=== PATIENT | female | born 1980 | race Caucasian/White ===

== ENCOUNTER 2023-10-24 08:28 | Outpatient (AMB) | payer BC, SELFPAY ==
--- NOTE | 2023-10-24 08:37 | MHC.OFFVIS ---
Intake Vital Signs 10/24/23 08:38 Weight 148 lb 4 oz BP 112/82 Blood Pressure Location Rt brachial Position Sitting Pulse 88 Pulse Source Pulse Oximeter Pulse Oximetry (%) 100 Oxygen Delivery Method Room Air Intake Visit Reasons: [id number] Intake Note: Patient presents for migraines. I've had migraines for as long as I can remember.Im currently on quilipta, I spoke to the doctor 2 years ago about botox but nothing was done. Allergies No Known Allergies Allergy (Verified 10/24/23 08:48) Medication List - Last Reconciled 10/24/23 by CHANEL Lutz atogepant (Qulipta) 60 mg PO DAILY clonidine HCl 0.1 mg PO BEDTIME PRN dextroamphetamine-amphetamine 20 mg 1 tab PO BID fremanezumab-vfrm (Ajovy) mg subcut galcanezumab-gnlm (Emgality Pen) mg subcut levothyroxine 50 mcg PO DAILY multivitamin 1 tab PO DAILY naltrexone 50 mg PO DAILY ondansetron HCl 0 mg PO rimegepant (Nurtec ODT) 0 mg PO rizatriptan 0 mg PO DAILY spironolactone 150 mg PO DAILY valacyclovir 1,000 mg PO DAILY vilazodone 40 mg PO DAILY HPI HPI Comments History of Present Illness Details 43-year-old female presents for new pt evaluation of headache disorder, specifically migraine. Past medical history includes exercise-induced asthma, interstitial cystitis, GERD, cervical neck tightness, vertigo, ADHD as a child, ADD as an adult, hypothyroidism, constipation, nausea, anxiety, partial hysterectomy in 2021. Patient denies history of syncope, seizures, clotting or blood dyscrasia disorders, diabetes, or heart disease. Patient reports she started having migraine at age 14 or 15 years old, without known triggering cause. She would have 1-2 migraine attacks per month which would last 1-2 days each attack.. Then approximately 4 years ago, after she had a follow-up MMR vaccine, she started having increased headache and migraine attacks, at worse it daily low-level headache with 17 severe headache days per month. Headache questionnaire: Previous work-up? 2021, brain MRI reported as normal. Typical headache characteristics: Prodrome symptoms? N/a Aura? Denies visual aura Pain intensity? Mild to severe Location, quality, characteristics? Pressure pain which starts in bilateral eyes and moves to the occipital region, tends to be mid center. Her neck is always tense. Associated symptoms? Photophobia, phonophobia, allodynia at times, asthma phobia, nausea, vomiting, not right in space dizziness, depth perception difficulties especially with stairs, fatigue, brain fog, difficulty word finding, activity intolerance. Focal weakness, Parethesias, Autonomic s/s? Denies, however is always congested. Postdrome? N/a Triggers? Bending over may cause increased stuffiness which can lead to increased headache Menstrual triggers? Status post partial hysterectomy Time of day? Wakes up with headache in the morning Duration? Had been all day daily with 4 severe migraine days per week. Since starting Qulipta 2 weeks ago, she has had less daily headaches and 1 severe migraine day per week. How does headache impact your life? When severe, she can not work. She works as a clinical social services specialist at [employer] Current acute medication use/interventions: Advil up to 6 tabs per day. Rizatriptan 10 mg- helps the headache but causes severe nausea. Zofran 4 mg tab daily in a.m.. Previous acute medication use: Sumatriptan tabs and nasal spray- unsure why these were stopped. Sumatriptan caused dizziness and nausea. Promethazine worsened headaches. Nurtec caused nausea. Current preventative medication use: Qulipta 60 mg q.h.s.- is helping headaches, however it is worsening her constipation and nausea. Previous preventative medication use: Amitriptyline caused palpitations, Topamax caused cognitive difficulties, propranolol caused tiredness, gabapentin caused nausea, venlafaxine and duloxetine caused panic attacks, Emgality caused nausea and constipation and had very little effect, Ajovy had better effect but caused nausea and constipation, Aimovig had initially 3 good weeks of affect but then the effect waned, worsened constipation and nausea symptoms. Non-pharmacological interventions: Ice, rest Constipation and nausea treatments: Currently using MiraLax twice a day, Colace, Dulcolax, allergies, prune juice, fiber gummies, daily Zofran, Pepto-Bismol. Other patient concerns include: Very nauseous, prone to constipation. Prone to not right in space dizziness, printed depth perception difficulties especially on stairs however denies diplopia. History of musculoskeletal disorders or injury? Chronic neck tightness History of concussion/head injury? Self-limited concussion in her early 20s. History of mood disorder? Anxiety, is followed by therapist and psychiatrist. History of sleep disorder? Does have difficulty initiating and maintaining sleep. Endorses snoring. Exercise pattern? Does exercise, uses a stationary bike. Family history of migraine or other headache disorder? Her father and paternal uncle had migraine. Her father had sleep apnea [facility] Medical History (Updated 10/24/23 @ 22:14 by CHANEL Lutz) Exercise-induced asthma Interstitial cystitis ADD (attention deficit disorder) Hypothyroidism Anxiety GERD (gastroesophageal reflux disease) Surgical History (Updated 10/24/23 @ 08:51 by EMY Pace) H/O: hysterectomy Family History (Updated 10/24/23 @ 08:53 by EMY Pace) Father Heart disease COPD (chronic obstructive pulmonary disease) Thyroid condition Mother Heart disease H/O: hysterectomy Sister Thyroid condition Social History (Updated 10/24/23 @ 08:54 by EMY Pace) Alcohol intake: never Patient Tobacco Use Status: Never used Tobacco Review of Systems Const Details: See scanned ROS form Physical Exam Vital Signs: Last Vital Signs Pulse 88 10/24/23 08:38 BP 112/82 10/24/23 08:38 Pulse Ox 100 10/24/23 08:38 Oxygen Delivery Method Room Air 10/24/23 08:38 Const Orientation/consciousness: patient oriented x3 HEENT Other: No palpable scalp tenderness. Head: Yes normocephalic Resp Effort & Inspection: normal respiratory effort and able to speak in complete sentences Neuro Other: Photophobic Posterior cervical tightness and tenderness On Romberg- patient does sway Tandem intact, , appears a bit unsteady though. General: patient oriented x3 Cranial nerves: Yes CN's II-XII intact bilaterally Cognition (Neuro): normal cognition Gait exam (Neuro): Normal gait present Motor exam (neuro): 5/5 motor strength present throughout Deep tendon reflexes (DTR's): Right triceps reflex intensity grade: 2+, Left triceps reflex intensity grade: 2+, Rt Biceps (C5, C6): 2+, Left biceps reflex intensity grade: 2+, Right brachioradialis reflex intensity grade: 2+, Left brachioradialis reflex intensity grade: 2+, Right patellar reflex intensity grade: 2+ and Left patellar reflex intensity grade: 2+ Coordination: [id number]-jc-chio test normal Pupils: Normal pupillary reactivity/response: bilateral Psych Appearance: grossly normal Mental Status: mental status grossly normal Speech and movement: Normal speech and movement present Affect: normal affect Attitude: cooperative Thought process: Normal thought process present Assessment & Plan Assessment & Plan (1) Chronic migraine without aura: Code(s): G43.709 - Chronic migraine without aura, not intractable, without status migrainosus (2) Nausea: Code(s): R11.0 - Nausea (3) Vertigo: Comment: ? Vestibular migraine component Code(s): R42 - Dizziness and giddiness (4) Constipation: Code(s): K59.00 - Constipation, unspecified Plan Will refer patient for vestibular PT. Will take the liberty of referring patient for GI consult. In the meantime, continue OTC bowel regimen. For overall headache management: Discussed importance of good self-care, including but not limited to maintaining a healthy diet, adequate fluid intake, adequate sleep, and engaging in regular physical activity. For headache triggers: Track headaches, especially after any treatment regimen changes. Migraine [employer] is one of many headache tracking apps. For acute headache treatment: Discussed importance of taking acute medications at the first sign of headache, however stressed importance of avoiding acute medication overuse. Retry sumatriptan 100 mg tab as needed, may repeat x1 in 2 hours, max of 200 mg per day. Trial Ubrelvy 100 mg as needed, may repeat x1 in 2 hours maximum 200 mg per day. Try reducing Advil intake. Stop rizatriptan, causes severe nausea. Discontinue Zofran, may be exacerbating constipation especially as she is taking this daily. Trial Reglan 5 mg q.4 to 6 hours as needed for nausea and headache. Advised to avoid overuse to reduce risk for potential TD signs and symptoms Previous acute migraine medication trials: Sumatriptan tabs and nasal spray- unsure why these were stopped. Sumatriptan caused dizziness and nausea. Promethazine worsened headaches. Nurtec caused nausea. Acute migraine medication contraindications: None at this time. For headache prevention medication: May continue Qulipta 60 mg q.h.s. for now. However I do not believe this is a long-term option for her, as it is causing nausea and constipation. Thus, I have advised patient to start Botox for chronic migraine treatment. Once Botox started, we will discontinue Qulipta. Previous migraine prevention medication trials: Amitriptyline caused palpitations, Topamax caused cognitive difficulties, propranolol caused tiredness, gabapentin caused nausea, venlafaxine and duloxetine caused panic attacks, Emgality caused nausea and constipation and had very little effect, Ajovy had better effect but caused nausea and constipation, Aimovig had initially 3 good weeks of affect but then the effect waned, worsened constipation and nausea symptoms. Migraine prevention medication contraindications: Avoid constipating agents. Pt to follow-up in 2 months or sooner prn. Orders: Orders PT Evaluation and Treatment Today G43.709 - Chronic migraine without aura, not intractable, without status migrainosus, R42 - Dizziness and giddiness Referrals Gastroenterology Referral G43.709 - Chronic migraine without aura, not intractable, without status migrainosus, K59.00 - Constipation, unspecified, R11.0 - Nausea, R42 - Dizziness and giddiness Medications: New onabotulinumtoxinA (Botox) inject 155 units IM across forehead, scalp, and neck 200 units IM ONCE 12 weeks 1 ea 3RF G43.709 - Chronic migraine without aura, not intractable, without status migrainosus sumatriptan succinate (0.5 - 1 x 100 mg) 50 - 100 mg orally at onset of headache, may repeat in 2 hrs PRN; max 2 tabs per day or 4 tabs/week (may take with Ibuprofen) 30 days 12 tabs 6RF migraine headache ubrogepant (Ubrelvy) take at onset of migraine, may repeat in 2hrs (may take w/ Ibuprofen) 50 - 100 mg (0.5 - 1 x 100 mg) PO ONCE 30 days PRN 16 tabs 3RF migraine headache metoclopramide HCl (Reglan) 5 mg PO Q4-6H 30 days PRN 60 tabs 1RF nausea and vomiting MDD 2 Coding Level of Care Code New Pt Level 4 (11007) Diagnoses Chronic migraine without aura G43.709 Nausea R11.0 Vertigo R42 Constipation K59.00
[2023-10-24 08:38] VITALS: BP 112/82; PULSE 88; O2SAT 100
== END 2023-10-24 10:12 | disposition home or self-care (01) ==
PROVIDERS: PCP Student in an Organized Health Care Education/Training Program; Visit Provider Nurse Practitioner Family
DX: G43.709 Chronic migraine without aura, not intractable, without status migrainosus (principal); R11.0 Nausea; R42 Dizziness and giddiness; K59.00 Constipation, unspecified
CPT/HCPCS: 99204

== ENCOUNTER → 2023-10-24 08:28 | Outpatient (BNVA) | payer BC, SELFPAY | PROVIDERS: PCP Student in an Organized Health Care Education/Training Program; Visit Provider Nurse Practitioner Family ==

== ENCOUNTER 2023-12-17 07:42 | Outpatient (AMB) | payer BC, SELFPAY ==
--- NOTE | 2023-12-17 07:42 | A.OFFVIS_ITS ---
Intake Intake Visit Reasons: 8wk follow up-LVM Intake Note: Patient following up for migraines. Allergies No Known Allergies Allergy (Verified 12/17/23 07:43) HPI HPI Comments History of Present Illness Details 43-yr-old female presents for f/u televi alix visit via [employer]. Pt denies any significant interval medical changes. Since the last visit, pt did stop Qulipta d/t GI s/e's and fatigue. She was switched to Ajovy approx 3 weeks ago. In the last few week of taking the Qulipta, she did have increased migraine frequency to daily- and needed to atke more of her as needed meds. Notes the tiredness from the qulipta was making her sleep too much. She is using Ubrlevy and Sumatriptan- helps, sometimes needs to take a second dose. Using Metoclopramide sparingly- not nearly as nauseous or dizzy. She is also trying to take more fluids- coconut water, migraine light filtering glasses, green light, B2 and Mag. Has not tried vestibular tx- d/t work constraints. In the last 4 weeks, she has had 15 headaches. Her Botox was denied as a buy and bill. Baseline headache characteristics: Mild to severe, Pressure pain which starts in bilateral eyes and moves to the occipital region, tends to be mid center. Her neck is always tense. Associated symptoms? Photophobia, phonophobia, allodynia at times, asthma phobia, nausea, vomiting, not right in space dizziness, depth perception difficulties especially with stairs, fatigue, brain fog, difficulty word finding, activity intolerance. [facility] Medical History (Updated 10/24/23 @ 22:14 by CHANEL Lutz) Exercise-induced asthma Interstitial cystitis ADD (attention deficit disorder) Hypothyroidism Anxiety GERD (gastroesophageal reflux disease) Surgical History (Updated 10/24/23 @ 08:51 by EMY Pace) H/O: hysterectomy Family History (Updated 10/24/23 @ 08:53 by EMY Pace) Father Heart disease COPD (chronic obstructive pulmonary disease) Thyroid condition Mother Heart disease H/O: hysterectomy Sister Thyroid condition Social History (Updated 10/24/23 @ 08:54 by EMY Pace) Alcohol intake: never Patient Tobacco Use Status: Never used Tobacco Physical Exam Const General: cooperative and no acute distress Orientation/consciousness: patient oriented x3 Resp Effort & Inspection: normal respiratory effort and able to speak in complete sentences Neuro General: patient oriented x3 Cognition (Neuro): normal cognition Psych Appearance: grossly normal Mental Status: mental status grossly normal Speech and movement: Normal speech and movement present Affect: normal affect Attitude: cooperative Assessment & Plan Assessment & Plan (1) Chronic migraine without aura: Code(s): G43.709 - Chronic migraine without aura, not intractable, without status migrainosus (2) Constipation: Code(s): K59.00 - Constipation, unspecified (3) Vertigo: Comment: ? Vestibular migraine component Code(s): R42 - Dizziness and giddiness Plan Vestibular PT- when able GI consult- when able. In the meantime, continue OTC bowel regimen. ? For overall headache management: Continue to optimize good self-care, including but not limited to maintaining a healthy diet, adequate fluid intake, adequate sleep, and engaging in regular physical activity. For headache triggers: Track headaches. ? For acute headache treatment: Continue sumatriptan 100 mg tab as needed, may repeat x1 in 2 hours, max of 200 mg per day. Continue Ubrelvy 100 mg as needed, may repeat x1 in 2 hours maximum 200 mg per day. Try reducing Advil intake. Continue Reglan 5 mg q.4 to 6 hours as needed for nausea and headache. Advised to avoid overuse to reduce risk for potential TD signs and symptoms Previous acute migraine medication trials: Sumatriptan tabs and nasal spray- unsure why these were stopped. Rizatriptan, causes severe nausea.. Promethazine worsened headaches. Nurtec caused nausea. Acute migraine medication contraindications: Avoid Zofran d/t risk for constipation. ? For headache prevention medication: Again start Botox for chronic migraine treatment- will resubmit PA (through speciality pharmacy) For now, continue Ajovy 225mg sc q month. Previous migraine prevention medication trials: Amitriptyline caused palpitations, Topamax caused cognitive difficulties, propranolol caused tiredness, gabapentin caused nausea, venlafaxine and duloxetine caused panic at tacks, Emgality caused nausea and constipation and had very little effect, Ajovy had better effect but in past caused nausea and constipation, Aimovig had initially 3 good weeks of affect but then the effect waned, worsened constipation and nausea symptoms. Stop Qulipta 60 mg q.h.s d/t severe nausea, constipation, fatigue/sleepiness. Migraine prevention medication contraindications: Avoid constipating agents. ? Pt to follow-up in 4-6 months or sooner prn. Telehealth Telehealth Location of provider rendering services: practice address Location of patient: address on file Patient Identification confirmed using: Name, : Yes Telehealth method: video Patient verbally consented to treatment: Yes Patient verbally consented to billing insurance company: Yes Patient informed of any privacy concerns related to visit: Yes Minutes spent on Phone/Video with Pt.: 30 Coding Level of Care Code Tele Est Pt Level 4 (67949) Diagnoses Chronic migraine without aura G43.709 Constipation K59.00 Vertigo R42
== END 2023-12-17 13:53 | disposition home or self-care (01) ==
LOC: HO.HSMS 07:42
PROVIDERS: PCP Student in an Organized Health Care Education/Training Program; Visit Provider Nurse Practitioner Family
DX: G43.709 Chronic migraine without aura, not intractable, without status migrainosus (principal); K59.00 Constipation, unspecified; R42 Dizziness and giddiness
CPT/HCPCS: 99214

== ENCOUNTER → 2023-12-17 07:42 | Outpatient (BNVA) | payer BC, SELFPAY | PROVIDERS: PCP Student in an Organized Health Care Education/Training Program; Visit Provider Nurse Practitioner Family ==

== ENCOUNTER 2024-05-13 07:47 | Outpatient (AMB) | payer BC, SELFPAY ==
--- NOTE | 2024-05-13 07:57 | A.OFFVIS_ITS ---
Vital Signs 05/13/24 07:59 Height 5 ft 1 in Weight 140 lb BMI 26.4 BP 100/62 Blood Pressure Location Rt brachial Position Sitting Respiration 16 Pulse 97 Pulse Source Pulse Oximeter Pulse Oximetry (%) 100 Oxygen Delivery Method Room Air Intake Visit Reasons: First Botox - Confirmed Intake Note: Pt presents for Botox injections. 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 Allergies No Known Allergies Allergy (Verified 05/13/24 07:58) Medication List - Last Reconciled 05/13/24 by Becki Rowell MD atogepant (Qulipta) 60 mg PO DAILY clonidine HCl 0.1 mg PO BEDTIME PRN dextroamphetamine-amphetamine 20 mg 1 tab PO BID fremanezumab-vfrm (Ajovy) 225 mg (1.5 mL) subcut ONCE 30 days galcanezumab-gnlm (Emgality Pen) mg subcut levothyroxine 50 mcg PO DAILY metoclopramide HCl (Reglan) 5 mg PO Q4-6H PRN 30 days MDD 2 multivitamin 1 tab PO DAILY naltrexone 50 mg PO DAILY onabotulinumtoxinA (Botox) 200 units IM ONCE 12 weeks ondansetron HCl 0 mg PO rimegepant (Nurtec ODT) 0 mg PO rizatriptan 0 mg PO DAILY spironolactone 150 mg PO DAILY sumatriptan succinate 50 - 100 mg orally at onset of headache, may repeat in 2 hrs PRN; max 2 tabs per day or 4 tabs/week (may take with Ibuprofen) 30 days ubrogepant (Ubrelvy) 50 - 100 mg (0.5 - 1 x 100 mg) PO ONCE PRN 30 days valacyclovir 1,000 mg PO DAILY vilazodone 40 mg PO DAILY HPI Comments Details: ? 44y/o female comes for treatment of migraines with botox. ??? Most frequent reported adverse reactions following injection of botox for chronic migraine include neck pain (9%), headache(5%), eyelid ptosis(4%), migraine(4%), muscular weakness(4%), musculuskeletal stiffness(4%), bronchitis(3%), injection site pain (3%), musculoskeletal pain(3%), myalgia(3%), facial paresis(2%), HTN(2%) and muscle spasms(2%) were discussed in detail. ??? Botulinum toxin typeA 200units Lot no [id number] expiration February 2024 was diluted with 4 cc of normal saline . ??? Muscles injected- ??? Frontalis 4 sites ??? Procerus 1 site ??? Fax Machine Operator- 2 sites ??? Temporalis- 8 sites ??? Occipitalis- 6 sites ??? Cervical paraspinals- 4 sites ??? Trapezius- 6 sites- 10 units each ??? 5 units each in 31 site ??? Total use- 185units ??? Discarded-15units [facility] Medical History (Updated 05/13/24 @ 08:26 by Becki Rowell MD) Chronic migraine without aura, intractable, without status migrainosus Exercise-induced asthma Interstitial cystitis ADD (attention deficit disorder) Hypothyroidism Anxiety GERD (gastroesophageal reflux disease) Surgical History H/O: hysterectomy Family History Father Heart disease COPD (chronic obstructive pulmonary disease) Thyroid condition Mother Heart disease H/O: hysterectomy Sister Thyroid condition Social History Alcohol intake: never Patient Tobacco Use Status: Never used Tobacco Physical Exam Vital Signs: Last Vital Signs Pulse 97 05/13/24 07:59 Resp 16 05/13/24 07:59 BP 100/62 05/13/24 07:59 Pulse Ox 100 05/13/24 07:59 Oxygen Delivery Method Room Air 05/13/24 07:59 BMI result Body Mass Index 26.4 Const General: cooperative and no acute distress Orientation/consciousness: patient oriented x3 Resp Effort & Inspection: normal respiratory effort and able to speak in complete sentences Neuro General: patient oriented x3 Cognition (Neuro): normal cognition Psych Appearance: grossly normal Mental Status: mental status grossly normal Speech and movement: Normal speech and movement present Affect: normal affect Attitude: cooperative Office Procedures Botulinum toxin Injection 81689 - Migraine Procedure code (CPT) selection complete Office Meds onabotulinumtoxinA 200 unit solution for injection Performing Provider: Becki Rowell MD Performing Location: [facility] Administered by: Becki Rowell MD on 05/13/24 08:35 Dose Route Admin Location Dispensed Lot Number Expiration Date NDC Colored Liquid Plastic Applier 200 unit IM 200 units [id number] 07/18/26 6637-9972-26 [employer]/BOTOX Comments: see hpi Assessment & Plan Assessment & Plan (1) Chronic migraine without aura, intractable, without status migrainosus: Code(s): G43.719 - Chronic migraine without aura, intractable, without status migrainosus Category: Medical Plan Patient tolerated the procedure well She will call with any side effects Orders: Orders AMB Botulinum toxin Injection Today G43.719 - Chronic migraine without aura, intractable, without status migrainosus Medications: New onabotulinumtoxinA 200 units IM ONCE 1 ea 0RF migraine G43.719 - Chronic migraine without aura, intractable, without status migrainosus Coding Level of Care Code Est Pt Level 1 (30248) Diagnoses Chronic migraine without aura, intractable, without status migrainosus G43.719 CPT Codes Botox Injection - Botox 3: 84655 - Migraine ([id number])
[2024-05-13 07:59] VITALS: BP 100/62; PULSE 97; RESP 16; O2SAT 100; BMI 26.4
== END 2024-05-13 08:21 | disposition home or self-care (01) ==
PROVIDERS: PCP Student in an Organized Health Care Education/Training Program; Visit Provider Psychiatry & Neurology Neurology
DX: G43.719 Chronic migraine without aura, intractable, without status migrainosus (principal)
CPT/HCPCS: 64615

== ENCOUNTER → 2024-05-13 07:47 | Outpatient (BNVA) | payer BC, SELFPAY | PROVIDERS: PCP Student in an Organized Health Care Education/Training Program; Visit Provider Psychiatry & Neurology Neurology | DX: G43.719 Chronic migraine without aura, intractable, without status migrainosus (principal) | CPT/HCPCS: 64615; 99211; J0585 ==

== ENCOUNTER 2024-06-02 07:54 | Outpatient (AMB) | payer BC, SELFPAY ==
--- NOTE | 2024-06-02 07:54 | MHC.OFFVIS ---
Intake Visit Reasons: Follow up Intake Note: Patient presents for follow up Allergies No Known Allergies Allergy (Verified 06/02/24 07:55) Medication List - Last Reconciled 06/02/24 by CHANEL Lutz atogepant (Qulipta) 60 mg PO DAILY clonidine HCl 0.1 mg PO BEDTIME PRN dextroamphetamine-amphetamine 20 mg 1 tab PO BID fremanezumab-vfrm (Ajovy) 225 mg (1.5 mL) subcut ONCE 30 days galcanezumab-gnlm (Emgality Pen) mg subcut levothyroxine 50 mcg PO DAILY metoclopramide HCl (Reglan) 5 mg PO Q4-6H PRN 30 days MDD 2 multivitamin 1 tab PO DAILY naltrexone 50 mg PO DAILY onabotulinumtoxinA (Botox) 200 units IM ONCE 12 weeks ondansetron HCl 0 mg PO rimegepant (Nurtec ODT) 0 mg PO rizatriptan 0 mg PO DAILY spironolactone 150 mg PO DAILY sumatriptan succinate 50 - 100 mg orally at onset of headache, may repeat in 2 hrs PRN; max 2 tabs per day or 4 tabs/week (may take with Ibuprofen) 30 days ubrogepant (Ubrelvy) 50 - 100 mg (0.5 - 1 x 100 mg) PO ONCE PRN 30 days valacyclovir 1,000 mg PO DAILY vilazodone 40 mg PO DAILY HPI Comments Details: 44-yr-old female presents for f/u televideo visit via [employer]. Pt denies any significant interval medical changes. She has started Botox for chronic migraine. She notes she can now fully extend her neck back. Pt notes her migraine headaches mostly behind/above eyes, and wonders about having Botox in her supraorbital regions. In the last 4 weeks, she has had 15 headaches (may have 3 day headache then a few days w/o headache), however they are not as severe in terms that she is no longer vomiting with the migraine attacks. She typically wakes up with the migraine. She does endorse snoring, daytime sleepiness even with taking Adderall. Her father has sleep apnea. She also has chronic allergies- usues nasal sprays. Is thinking about getting allergy shots. Sumatripatn can be very effective but sometimes needs to take a second dose. She is not finding the Ubrelvy is very effective. She is taking Advil almost every other day. Using Metoclopramide sparingly- not nearly as nauseous or dizzy. She is also trying to take more fluids- coconut water, migraine light filtering glasses, green light, B2 and Mag. Vestibular symptoms and nausea are better. She has not done vestibular PT yet. She did add a metamucil tab to her regimen, which has helped her constipation- and thinks this may have helped the nausea and dizziness a s well Baseline headache characteristics: Mild to severe, Pressure pain which starts in bilateral eyes and moves to the occipital region, tends to be mid center. Her neck is always tense. Associated symptoms? Photophobia, phonophobia, allodynia at times, asthma phobia, nausea, vomiting, not right in space dizziness, depth perception difficulties especially with stairs, fatigue, brain fog, difficulty word finding, activity intolerance. [facility] Medical History (Updated 06/02/24 @ 08:31 by CHANEL Lutz) Chronic migraine without aura, intractable, without status migrainosus Exercise-induced asthma Interstitial cystitis ADD (attention deficit disorder) Hypothyroidism Anxiety GERD (gastroesophageal reflux disease) Surgical History H/O: hysterectomy Family History Father Heart disease COPD (chronic obstructive pulmonary disease) Thyroid condition Mother Heart disease H/O: hysterectomy Sister Thyroid condition Social History Alcohol intake: never Patient Tobacco Use Status: Never used Tobacco Physical Exam Const General: cooperative and no acute distress Orientation/consciousness: patient oriented x3 HEENT Other: mild audible nasal congestion Resp Effort & Inspection: normal respiratory effort and able to speak in complete sentences Neuro General: patient oriented x3 Cognition (Neuro): normal cognition Psych Appearance: grossly normal Mental Status: mental status grossly normal Speech and movement: Normal speech and movement present Affect: normal affect Attitude: cooperative Telehealth Telehealth Telehealth Platform: [facility] Location of provider rendering services: practice address Location of patient: address on file Patient Identification confirmed using: Name, : Yes Telehealth method: video Patient verbally consented to treatment: Yes Patient verbally consented to billing insurance company: Yes Patient informed of any privacy concerns related to visit: Yes Minutes spent on Phone/Video with Pt.: 27 Assessment & Plan Assessment & Plan (1) Chronic migraine without aura, intractable, without status migrainosus: Code(s): G43.719 - Chronic migraine without aura, intractable, without status migrainosus Category: Medical (2) Sleep difficulties: Code(s): G47.9 - Sleep disorder, unspecified Category: Medical (3) Snoring: Code(s): R06.83 - Snoring Category: Medical (4) Excessive daytime sleepiness: Code(s): G47.19 - Other hypersomnia Category: Medical Plan For Nausea, constipation, dizziness: Improved Vestibular PT- when able Continue OTC bowel regimen. ? For overall headache management: Continue to optimize good self-care, including but not limited to maintaining a healthy diet, adequate fluid intake, adequate sleep, and engaging in regular physical activity. For headache triggers: Track headaches. HST to assess for sleep apnea- as this may increase risk for morning headaches. ? For acute headache treatment: Continue sumatriptan 100 mg tab as needed, may repeat x1 in 2 hours, max of 200 mg per day. Continue Ubrelvy 100 mg as needed, may repeat x1 in 2 hours maximum 200 mg per day. Trial Sumatriptan 6mg sub-q inj- at onset of morning migraine attack, MR x's 1 in 1 hr (or w/ upto 1 Sumatripatn tab). Max 2 doses of Sumatriptan per day. Gaol to reduce Advil intake. Continue Reglan 5 mg q.4 to 6 hours as needed for nausea and headache. Advised to avoid overuse to reduce risk for potential TD signs and symptoms Previous acute migraine medication trials: Sumatriptan tabs and nasal spray- unsure why these were stopped. Rizatriptan, causes severe nausea.. Promethazine worsened headaches. Nurtec caused nausea. Acute migraine medication contraindications: Avoid Zofran d/t risk for constipation. ? For chronic migraine headache prevention medication: Continue Botox, as pt is already seeing reduced intensity of migraine and improved cervical ROM. Consider increasing inj in frontalis/supraorbital/corrogator regions as this is primary area of pt's migraine s/s.. For now, continue Ajovy 225mg sc q month. Previous migraine prevention medication trials: Amitriptyline caused palpitations, Topamax caused cognitive difficulties, propranolol caused tiredness, gabapentin caused nausea, venlafaxine and duloxetine caused panic attacks, Emgality caused nausea and constipation and had very little effect, Ajovy had better effect but in past caused nausea and constipation, Aimovig had initially 3 good weeks of affect but then the effect waned, worsened constipation and nausea symptoms. Qulipta 60 mg q.h.s d/t severe nausea, constipation, fatigue/sleepiness. Migraine prevention medication contraindications: Avoid constipating agents. ? Pt to follow-up in 6 months or sooner prn. Orders: Orders RT home sleep study Today G47.19 - Other hypersomnia, G47.9 - Sleep disorder, unspecified, R06.83 - Snoring Medications: New sumatriptan succinate may repeat in 1 hr (max 2 doses per day). 6 mg (0.5 mL) subcut ONCE 30 days PRN 8 mL 6RF morning migraine headache G43.719 - Chronic migraine without aura, intractable, without status migrainosus Refilled metoclopramide HCl (Reglan) 5 mg PO Q4-6H 30 days PRN 60 tabs 3RF nausea and vomiting MDD 2 Coding Level of Care Code Tele Est Pt Level 4 (26632) Diagnoses Chronic migraine without aura, intractable, without status migrainosus G43.719 Sleep difficulties G47.9 Snoring R06.83 Excessive daytime sleepiness G47.19 Donnellson Sleepiness Scale Questions Sitting and reading: moderate chance of dozing Watching TV: moderate chance of dozing Sitting inactive in a theater, movie etc.: slight chance of dozing As a passenger in a car for an hour without break: high chance of dozing Lying down in the afternoon when circumstances permit: high chance of dozing Sitting and talking to someone: would never doze Sitting quietly after lunch without alcohol: moderate chance of dozing In a car, while stopped for a few minutes in the traffic: would never doze ESS < 10: normal, ESS > 12: pathologic: 13
== END 2024-06-02 09:48 | disposition home or self-care (01) ==
LOC: HO.HSMS 07:54
PROVIDERS: PCP Student in an Organized Health Care Education/Training Program; Visit Provider Nurse Practitioner Family
DX: G43.719 Chronic migraine without aura, intractable, without status migrainosus (principal); G47.9 Sleep disorder, unspecified; R06.83 Snoring; G47.19 Other hypersomnia
CPT/HCPCS: 99214

== ENCOUNTER → 2024-06-02 07:54 | Outpatient (BNVA) | payer BC, SELFPAY | PROVIDERS: PCP Student in an Organized Health Care Education/Training Program; Visit Provider Nurse Practitioner Family ==

== ENCOUNTER 2024-08-25 10:46 | Outpatient (AMB) | payer BC, SELFPAY ==
--- NOTE | 2024-08-25 10:59 | MHC.OFFVIS ---
Intake Visit Reasons: Botox Intake Note: Patient presents for botox Allergies No Known Allergies Allergy (Verified 08/25/24 11:00) Medication List - Last Reconciled 08/25/24 by Becki Rowell MD clonidine HCl 0.1 mg PO BEDTIME PRN dextroamphetamine-amphetamine 20 mg 1 tab PO BID fremanezumab-vfrm (Ajovy) 225 mg (1.5 mL) subcut ONCE 30 days levothyroxine 50 mcg PO DAILY metoclopramide HCl (Reglan) 5 mg PO Q4-6H PRN 30 days MDD 2 multivitamin 1 tab PO DAILY naltrexone 50 mg PO DAILY onabotulinumtoxinA (Botox) 200 units IM ONCE 12 weeks rizatriptan 0 mg PO DAILY spironolactone 150 mg PO DAILY sumatriptan succinate 50 - 100 mg orally at onset of headache, may repeat in 2 hrs PRN; max 2 tabs per day or 4 tabs/week (may take with Ibuprofen) 30 days sumatriptan succinate 6 mg (0.5 mL) subcut ONCE PRN 30 days ubrogepant (Ubrelvy) 50 - 100 mg (0.5 - 1 x 100 mg) PO ONCE PRN 30 days valacyclovir 1,000 mg PO DAILY vilazodone 40 mg PO DAILY HPI Comments Details: ? 44y/o female comes for treatment of migraines with botox. ??? Most frequent reported adverse reactions following injection of botox for chronic migraine include neck pain (9%), headache(5%), eyelid ptosis(4%), migraine(4%), muscular weakness(4%), musculuskeletal stiffness(4%), bronchitis(3%), injection site pain (3%), musculoskeletal pain(3%), myalgia(3%), facial paresis(2%), HTN(2%) and muscle spasms(2%) were discussed in detail. ??? Botulinum toxin typeA 200units Lot no [id number] expiration May 2026 was diluted with 4 cc of normal saline . ??? Muscles injected- ??? Frontalis 4 sites ??? Procerus 1 site ??? Line Inspector- 2 sites ??? Temporalis- 8 sites ??? Occipitalis- 6 sites ??? Cervical paraspinals- 4 sites ??? Trapezius- 6 sites- 5 units each Navdeep massetter 20 units each ??? 5 units each in 31 site ??? Total use- 195units ??? Discarded-5units [facility] Medical History (Updated 08/25/24 @ 11:31 by Becki Rowell MD) Bruxism Chronic migraine without aura, intractable, without status migrainosus Exercise-induced asthma Interstitial cystitis ADD (attention deficit disorder) Hypothyroidism Anxiety GERD (gastroesophageal reflux disease) Surgical History H/O: hysterectomy Family History Father Heart disease COPD (chronic obstructive pulmonary disease) Thyroid condition Mother Heart disease H/O: hysterectomy Sister Thyroid condition Social History Alcohol intake: never Patient Tobacco Use Status: Never used Tobacco Physical Exam Const General: cooperative and no acute distress Orientation/consciousness: patient oriented x3 Resp Effort & Inspection: normal respiratory effort and able to speak in complete sentences Neuro General: patient oriented x3 Cognition (Neuro): normal cognition Psych Appearance: grossly normal Mental Status: mental status grossly normal Speech and movement: Normal speech and movement present Affect: normal affect Attitude: cooperative Office Procedures Botulinum toxin Injection 51635 - Migraine Procedure code (CPT) selection complete Office Meds onabotulinumtoxinA 200 unit solution for injection Performing Provider: Becki Rowell MD Performing Location: [facility] Administered by: Becki Rowell MD on 08/25/24 11:32 Dose Route Admin Location Dispensed Lot Number Expiration Date [facility] Director Of Guidance 195 unit subcut 200 units [id number] ALLERGAN/BOTOX Comments: see HPI Assessment & Plan Assessment & Plan (1) Chronic migraine without aura, intractable, without status migrainosus: Code(s): G43.719 - Chronic migraine without aura, intractable, without status migrainosus Category: Medical (2) Bruxism: Code(s): F45.8 - Other somatoform disorders Category: Medical Plan Patient tolerated the procedure well She will call with any side effects Orders: Orders AMB Botulinum toxin Injection - Patient Supplied N/C Today F45.8 - Other somatoform disorders, G43.719 - Chronic migraine without aura, intractable, without status migrainosus Medications: New onabotulinumtoxinA 200 units subcut ONCE 1 ea 0RF migraine F45.8 - Other somatoform disorders, G43.719 - Chronic migraine without aura, intractable, without status migrainosus Coding Level of Care Code Est Pt Level 1 (31835) Diagnoses Chronic migraine without aura, intractable, without status migrainosus G43.719 Bruxism F45.8 CPT Codes Botox Injection - Botox 3: 76563 - Migraine ([id number])
== END 2024-08-25 11:28 | disposition home or self-care (01) ==
PROVIDERS: PCP Student in an Organized Health Care Education/Training Program; Visit Provider Psychiatry & Neurology Neurology
DX: G43.719 Chronic migraine without aura, intractable, without status migrainosus (principal)
CPT/HCPCS: 64615

== ENCOUNTER → 2024-08-25 10:46 | Outpatient (BNVA) | payer BC, SELFPAY | PROVIDERS: PCP Student in an Organized Health Care Education/Training Program; Visit Provider Psychiatry & Neurology Neurology | DX: G43.719 Chronic migraine without aura, intractable, without status migrainosus (principal); F45.8 Other somatoform disorders | CPT/HCPCS: 64615; 99211; J0585 ==

== ENCOUNTER 2024-11-25 10:34 | Outpatient (AMB) | payer BC, SELFPAY ==
[2024-11-25 10:36] VITALS: BMI 26.4
--- NOTE | 2024-11-25 10:36 | A.OFFVIS_ITS ---
Vital Signs 11/25/24 10:36 Height 5 ft 1 in Weight 140 lb BMI 26.4 Intake Visit Reasons: Botox Intake Note: Patient presents for botox injection. patient supplied Allergies No Known Allergies Allergy (Verified 11/25/24 10:43) Medication List - Last Reconciled 11/25/24 by Becki Rowell MD clonidine HCl 0.1 mg PO BEDTIME PRN dextroamphetamine-amphetamine 20 mg 1 tab PO BID fremanezumab-vfrm (Ajovy) 675 mg (4.5 mL) subcut ONCE 90 days levothyroxine 50 mcg PO DAILY metoclopramide HCl (Reglan) 5 mg PO Q4-6H PRN 30 days MDD 2 multivitamin 1 tab PO DAILY naltrexone 50 mg PO DAILY onabotulinumtoxinA (Botox) 200 units IM ONCE 12 weeks rizatriptan 0 mg PO DAILY spironolactone 150 mg PO DAILY sumatriptan succinate 50 - 100 mg orally at onset of headache, may repeat in 2 hrs PRN; max 2 tabs per day. 30 days sumatriptan succinate 6 mg (0.5 mL) subcut ONCE PRN 30 days ubrogepant (Ubrelvy) 50 - 100 mg (0.5 - 1 x 100 mg) PO ONCE PRN 30 days valacyclovir 1,000 mg PO DAILY vilazodone 40 mg PO DAILY HPI Comments Details: ? 44y/o female comes for treatment of migraines with botox. ??? Most frequent reported adverse reactions following injection of botox for chronic migraine include neck pain (9%), headache(5%), eyelid ptosis(4%), migraine(4%), muscular weakness(4%), musculuskeletal stiffness(4%), bronchitis(3%), injection site pain (3%), musculoskeletal pain(3%), myalgia(3%), facial paresis(2%), HTN(2%) and muscle spasms(2%) were discussed in detail. ??? Botulinum toxin typeA 200units Lot no [id number] expiration December 2026 was diluted with 4 cc of normal saline . ??? Muscles injected- ??? Frontalis 4 sites ??? Procerus 1 site ??? Medical Case Worker- 2 sites ??? Temporalis- 8 sites ??? Occipitalis- 6 sites ??? Cervical paraspinals- 4 sites ??? Trapezius- 6 sites- 5 units each Navdeep massetter 20 units each ??? 5 units each in 31 site ??? Total use- 195units ??? Discarded-5units PFSH Medical History Bruxism Chronic migraine without aura, intractable, without status migrainosus Exercise-induced asthma Interstitial cystitis ADD (attention deficit disorder) Hypothyroidism Anxiety GERD (gastroesophageal reflux disease) Surgical History H/O: hysterectomy Family History Father Heart disease COPD (chronic obstructive pulmonary disease) Thyroid condition Mother Heart disease H/O: hysterectomy Sister Thyroid condition Social History Alcohol intake: never Patient Tobacco Use Status: Never used Tobacco Physical Exam Vital Signs: BMI result Body Mass Index 26.4 Const General: cooperative and no acute distress Orientation/consciousness: patient oriented x3 Resp Effort & Inspection: normal respiratory effort and able to speak in complete sentences Neuro General: patient oriented x3 Cognition (Neuro): normal cognition Psych Appearance: grossly normal Mental Status: mental status grossly normal Speech and movement: Normal speech and movement present Affect: normal affect Attitude: cooperative Office Procedures Botulinum toxin Injection 82719 - Migraine Procedure code (CPT) selection complete Office Meds onabotulinumtoxinA 200 unit solution for injection Performing Provider: Becki Rowell MD Performing Location: [facility] [place] [facility] Administered by: Becki Rowell MD on 11/25/24 12:19 Dose Route Admin Location Dispensed Lot Number Expiration Date [facility] Breakfast And Room Attendant 195 unit subcut 200 units [id number] ALLERGAN/BOTOX Comments: see hpi Assessment & Plan Assessment & Plan (1) Chronic migraine without aura, intractable, without status migrainosus: Code(s): G43.719 - Chronic migraine without aura, intractable, without status migrainosus Category: Medical (2) Bruxism: Code(s): F45.8 - Other somatoform disorders Category: Medical Plan Patient tolerated the procedure well She will call with any side effects Orders: Orders AMB Botulinum toxin Injection - Patient Supplied N/C Today G43.719 - Chronic migraine without aura, intractable, without status migrainosus Medications: New onabotulinumtoxinA 200 units subcut ONCE 1 ea 0RF migraine headache G43.719 - Chronic migraine without aura, intractable, without status migrainosus Coding Level of Care Code Est Pt Level 1 (16190) Diagnoses Chronic migraine without aura, intractable, without status migrainosus G43.719 Bruxism F45.8 CPT Codes Botox Injection - Botox 3: 23069 - Migraine ([id number])
--- OUTSIDE RECORDS SUMMARY | 2024-11-25 12:42 | XMS_ITS | Encounter Summary ---
Author Organization [facility] Address [address] [place] [address] Care Team Providers Care Land Mobile Radio Technician Name Role Phone Eliu Fong MD Unavailable James Sumner MD Unavailable + Eliu Fong MD Unavailable Brittny Boyd NP Unavailable [phone] Marielle Armas MD Primary Care Provider Unava ilable Reason for Visit * Reason Comments Rash Encounter Details Date Type Department Care Team (Late st Contact Info) Description 11/15/2024 1:55 PM EST - 11/15/2024 3:00 PM EST Hospital Encounter [facility] [address] [place] [id number] Uzair Pillai MD [address] [facility] [address] [place] [address] Dermatitis (Primary Dx); Cellulitis of right lower extremity Discharge Disposition: Home or Self Care Social History Tobacco Use Types Packs/Day Years Used Date Smoking Tobacco: Never Smokeless Tobacco: Never Alcohol Use Standard Drinks/Week Comments Not Currently 0 (1 standard drink = 0.6 oz pur e alcohol) Comments Unknown Sex and Gender Information Value Date Recorded Sex Assigned at Female 11/05/2024 12:11 PM EST Legal Sex Female 2:10 AM EST Gender Identity Female 11/05/2024 12:11 PM EST Sexual Orientation Not on file documented as of this encounter Last Filed Vital Signs Vital Sign Reading Time Taken Comments Blood Pressure 99/68 11/15/2024 1:55 PM EST Pulse 110 11/15/2024 1:55 PM EST Temperature 36.5 ??C (97.7 ??F) 11/15/2024 1:55 PM ES T Respiratory Rate 16 11/15/2024 1:55 PM EST Oxygen Saturation 100% 11/15/2024 1:55 PM EST Inhaled Oxygen Concentration - - Weight - - Height - - Body Mass Index - - documented in this encounter Functional Status * Are you deaf or do you have serious difficulty hearing? Answer Date of Assessment Author No 11/15/2024 1:39 PM EST Jim Staley yra * Are you blind or do you have serious difficulty seeing, even when wearing glasses? Answer Date of Assessment Author No 11/15/2024 1:39 PM EST Jim Staley yra * Do you have serious difficulty walking or climbing stairs? Answer Date of Assessment Author No 11/15/2024 1:39 PM EST Jim Staley yra * Do you have difficulty dressing or bathing? Answer Date of Assessment Author No 11/15/2024 1:39 PM EST Jim Staley yra * Because of a physical, mental, or emotional condition, do you have difficulty doing errands alone such as visiting the doctor? Answer Date of Assessment Author No 11/15/2024 1:39 PM EST Jim Staley yra documented as of this encounter Mental Status * Because of a physical, mental, or emotional condition, do you have serious difficulty concentrating, remembering, or making decisions? Answer Entry Date Author No 11/15/2024 1:39 PM EST Jim Staleya documented in this encounter Discharge Instructions * Discharge Instructions* Uzair Pillai MD - 11/15/2024 2:57 PM EST Please take the prescribed steroid to help reduce the inflammation associated with what is likely bug bites. There is some indication that they might becoming superinfected with bacteria and so you are also being sent a prescription for antibiotics. Consider starting this if you develop worsening symptoms, extension of redness beyond the marked areas, or any development of systemic symptoms. documented in this encounter Medications at Time of Discharge ascorbic acid, vitamin C, (vitamin C) 1000 MG tablet 1 tablet(s) by mouth once a day 12/29/2019 atogepant (QULIPTA) 10 mg Tab tablet(s) oral 10/14/2023 azelastine (ASTELIN) 137 mcg (0.1 %) nasal spray 1 spray NU twice a day 1 spray 2 05/02/2019 cholecalciferol (VITAMIN D3) 125 mcg (5,000 unit) Tab tablet 1 tablet(s) by mouth once a day 12/29/2019 cod liver oiL cap 1 capsule(s) by mouth once a day 12/29/2019 ferrous sulfate (IRON) 325 (65 FE) MG tablet 1 tablet(s) by mouth once a day 12/29/2019 ibuprofen (MOTRIN) 600 MG tablet 1 tablet(s) by mouth 1-3x/day as needed for headache 90 tablet 1 12/22/2019 levothyroxine 13 mcg cap capsule(s) oral 10/14/2023 lysine 1,000 mg Tab 1 tablet(s) by mouth once a day 12/29/2019 omeprazole (PriLOSEC) [address] Capsule TAKE 1 CAPSULE BY MOUTH EVERY DAY 30 capsule 0 09/13/2020 predniSONE (DELTASONE) 10 MG tablet Take 4 tablets (40 mg total) by mouth daily for 1 day, THEN 2 tablets (20 mg total) daily for 1 day, THEN 1 tablet (10 mg total) daily for 1 day. 7 tablet 11/15/2024 SUMAtriptan (IMITREX) 25 MG tablet tablet(s) oral 11/18/2023 vilazodone (VIIBRYD) 10 mg Tab tablet tablet(s) oral 11/18/2023 doxycycline hyclate (VIBRA-TABS) 100 MG tablet Take 1 tablet (100 mg total) by mouth every morning & every evening for 5 days. 10 tablet 11/15/2024 5 fluconazole (DIFLUCAN) 150 MG tablet Take 1 tablet (150 mg total) by mouth once for 1 dose. Repeat second dose of 1 tablet if persistent symptoms after 72 hours 2 tablet 11/15/2024 5 documented as of this encounter ED Notes * Melissa Gonsales RN - 11/15/2024 2:08 PM EST Pt presents with 2 days of rash to left ankle that is itching, using Benadryl cream taking oral Benadryl with little relief documented in this encounter Plan of Treatment Upcoming Encounters Date Type Department Care Team ([facility] st Contact Info) Description 12/01/2024 9:00 AM EDT Office Visit [facility] [address] [facility] [address] [place] [address] Jessica Quispe MD [address] [facility] [address]st Floor [address] [place] [address] In Person with Physician documented as of this encounter Visit Diagnoses Diagnosis Dermatitis- Primary Contact dermatitis and other eczema, due to unspecified cause Cellulitis of right lower extremity Interstitial cystitis- Primary Chronic interstitial cystitis documented in this encounter Care Teams [employer] Mobile [employer] Technician Relationship Specialty Start Date End Date Eliu Fong MD PCP - Insurance Assigned PCP 11/18/23 Marielle Armas MD PCP - General Internal Medicine 11/07/24 James Sumner MD [address] [place] [address] Neurology 05/28/19 Eliu Fong MD [address] [place] [address] Family Practice 08/23/17 Brittny Boyd NP [address] [facility] [address] [place] [phone] Nurse Practitioner 02/16/24 documented as of this encounter
--- OUTSIDE RECORDS SUMMARY | 2024-11-25 12:42 | XMS_ITS | Clinical Summary ---
Author Organization [facility] ity Address [address] [place] [address] Care Team Providers Care Regional Sales Representative Name Role Phone Unavailable Primary Care Provider Unavailabl e Social History Tobacco Use Types Packs/Day Years Used Date Smoking Tobacco: Never Assessed Comments Unknown Sex and Gender Information Value Date Recorded Sex Assigned at Not on file Legal Sex Female 1:39 PM EDT Gender Identity Not on file Sexual Orientation Not on file Plan of Treatment Health Maintenance Due Date Last Done Comments Breast Cancer Screening 1982 DTaP,Tdap,and Td Vaccines (1 - Tdap) 2001 Hepatitis B Vaccines (1 of 3 - 19+ 3-dose series) 2001 Cervical Cancer Screening: P ap Smear 2003 Depression Screening 04/09/2024 HIV Screening 04/09/2024 Hepatitis C Screening 04/09/2024 Social Influencers of Health Screening 04/09/2024 COVID-19 Vaccine ( - 2023-2 5 season) 2024 Influenza Vaccine (#1) 2024 HIB Vaccines Aged Out No longer eligi ble based on patient's age to complete this topic HPV Vaccines Aged Out No longer eligi ble based on patient's age to complete this topic Hepatitis A Vaccines Aged Out No long er eligible based on patient's age to complete this topic IPV Vaccines Aged Out No longer eligi ble based on patient's age to complete this topic MMR Vaccines Aged Out No longer eligi ble based on patient's age to complete this topic Meningococcal ACWY Vaccine Aged Out N o longer eligible based on patient's age to complete this topic Meningococcal B Vacine Aged Out No lo nger eligible based on patient's age to complete this topic Pneumococcal Vaccine: Pediat rics (0 to 5 Years) and At-Risk Patients (6 to 64 Years) Aged Out No longer eligible b ased on patient's age to complete this topic RSV Immunization Patients Un lavelle 20 months Aged Out No longer eligible b ased on patient's age to complete this topic Varicella Vaccines Aged Out No longer eligible based on patient's age to complete this topic
--- OUTSIDE RECORDS SUMMARY | 2024-11-25 12:42 | XMS_ITS | Clinical Summary ---
Author Organization [facility] Address [address] [place] [address] Care Team Providers Care Paring Machine Operator Name Role Phone Eliu Fong MD Unavailable James Sumner MD Unavailable + Eliu Fong MD Unavailable Brittny Boyd NP Unavailable [phone] Marielle Armas MD Primary Care Provider Unava ilable Allergies Active Allergy Reactions Criticality Noted Date Comments Nitrofurantoin Monohyd/M-Cryst Other (See Comments) Other Reaction(s): body swelling Penicillins Other (See Comments) Additional Information: pt okay with Amoxicillin but had horrible vaginal yeast infection with Augmentin; Other Reaction(s): father had anaphylaxis Sulfamethoxazole-Trimeth oprim Rash Medications cod liver oiL cap 1 capsule(s) by mouth once a day 0 Active ibuprofen (MOTRIN) 600 MG tablet 1 tablet(s) by mouth 1-3x/day as needed for headache 90 tablet 1 0 Active ferrous sulfate (IRON) 325 (65 FE) MG tablet 1 tablet(s) by mouth once a day 0 Active levothyroxine 13 mcg cap capsule(s) oral 4 Active omeprazole (PriLOSEC) [address] Capsule TAKE 1 CAPSULE BY MOUTH EVERY DAY 30 capsule 0 0 Active azelastine (ASTELIN) 137 mcg (0.1 %) nasal spray 1 spray NU twice a day 1 spray 2 9 Active atogepant (QULIPTA) 10 mg Tab tablet(s) oral 4 Active SUMAtriptan (IMITREX) 25 MG tablet tablet(s) oral 4 Active lysine 1,000 mg Tab 1 tablet(s) by mouth once a day 0 Active vilazodone (VIIBRYD) 10 mg Tab tablet tablet(s) oral 4 Active cholecalciferol (VITAMIN D3) 125 mcg (5,000 unit) Tab tablet 1 tablet(s) by mouth once a day 0 Active ascorbic acid, vitamin C, (vitamin C) 1000 MG tablet 1 tablet(s) by mouth once a day 0 Active predniSONE (DELTASONE) 10 MG tablet Take 4 tablets (40 mg total) by mouth daily for 1 day, THEN 2 tablets (20 mg total) daily for 1 day, THEN 1 tablet (10 mg total) daily for 1 day. 7 tablet 5 Active doxycycline hyclate (VIBRA-TABS) 100 MG tablet Take 1 tablet (100 mg total) by mouth every morning & every evening for 5 days. 10 tablet 5 11/21/19 25 fluconazole (DIFLUCAN) 150 MG tablet Take 1 tablet (150 mg total) by mouth once for 1 dose. Repeat second dose of 1 tablet if persistent symptoms after 72 hours 2 tablet 5 11/16/19 25 Encounters Date Type Department Care Team Description 11/15/2024 1:55 PM EST - 11/15/2024 3:00 PM [facility] Hospital Encounter [facility] [address] [place] [address] Uzair Pillai MD Dermatitis (Primary Dx); Cellulitis of right lower extremity Discharge Disposition: Home or Self Care 11/07/2024 10:16 AM EST - 11/07/2024 11:01 AM [facility] Hospital Encounter [facility] [address] [place] [address] Haroon Mtz DO Dysuria (Primary Dx) Discharge Disposition: Home or Self Care from Last 3 Months Social History Tobacco Use Types Packs/Day Years Used Date Smoking Tobacco: Never Smokeless Tobacco: Never Tobacco Cessation:Counseling Given: Not Answered Alcohol Use Standard Drinks/Week Comments Not Currently 0 (1 standard drink = 0.6 oz pur e alcohol) Comments Unknown Sex and Gender Information Value Date Recorded Sex Assigned at Female 11/05/2024 12:11 PM EST Legal Sex Female 2:10 AM EST Gender Identity Female 11/05/2024 12:11 PM EST Sexual Orientation Not on file Last Filed Vital Signs Vital Sign Reading Time Taken Comments Blood Pressure 99/68 11/15/2024 1:55 PM EST Pulse 110 11/15/2024 1:55 PM EST Temperature 36.5 ??C (97.7 ??F) 11/15/2024 1 :55 PM EST Respiratory Rate 16 11/15/2024 1:55 PM EST Oxygen Saturation 100% 11/15/2024 1:5 5 PM EST Inhaled Oxygen Concentration - - Weight 63.5 kg (140 lb) 08/26/2019 12:0 0 AM EST Legacy value: 140 Height 155.4 cm (5' 1.2 ) 05/02/2019 12 :00 AM EDT Legacy value: 61.2; Method: Patient Reported Body Mass Index 26.28 05/02/2019 12:00 AM EDT Plan of Treatment Upcoming Encounters Date Type Department Care Team (Late st Contact Info) Description 12/01/2024 9:00 AM EDT Office Visit [facility] [address] Floor Entry [address] [address] Jessica Quispe MD [address] [place] [address] Floor [address] [address] In Person with Physician Health Maintenance Due Date Last Done Comments Lipid Panel 1982 Depression Screening 1986 Hepatitis C Screening 2000 DTaP,Tdap,and Td Vaccines (1 - Tdap) 2001 Pap Smear 2003 Cervical Cancer Screening 2012 HPV/Cotest 2012 Breast Cancer Screening 2022 COVID-19 Vaccine (1 - 2023-2 5 season) 2024 Influenza Vaccine (#1) 2024 06/16/2018 Blood Pressure 11/15/2025 11/15/2024 Meningococcal Vaccines Aged Out No lo nger eligible based on patient's age to complete this topic Pneumococcal Vaccine: Pediat rics (0 to 5 Years) and At-Risk Patients (6 to 64 Years) Aged Out No longer eligi ble based on patient's age to complete this topic Procedures Procedure Name Priority Date/Time Associated Diagnosis Comments URINE DIPSTICK ONLY Routine 11/07/2024 1 0:30 AM EST CULTURE, AEROBIC, URINE Routine 11/07/2024 10:30 AM EST from Last 3 Months Results * (ABNORMAL) Urine Dipstick with Reflex Culture (11/07/2024 10:30 AM EST) Color, Urine Yellow Yellow 11/07/2024 10:41 AM [facility] Clarity, Urine Cloudy(A) Clear 11/07/2024 10:41 AM [facility] Glucose, Urine Negative Negative 11/07/2024 10:41 AM [facility] Bilirubin, Urine Small(A) Negative 11/07/2024 10:41 AM [facility] Ketone, Urine Negative Negative 11/07/2024 10:[address] [facility] Specific [place], Urine 1.015 1.000 - 1.030 11/07/2024 10:41 AM [facility] Blood, Urine Negative Negative 11/07/2024 10:41 AM [facility] pH, Urine 7.5 5.0 - 9.0 11/07/2024 10:41 AM [facility] Protein, Urine 30 mg/dL(A) Negative 11/07/2024 10:41 AM [facility] Urobilinogen, Urine 0.2 mg/dL 0.2 mg/dL, 1.0 mg/dL 11/07/2024 10:41 AM [facility] Nitrite, Urine Negative Negative 11/07/2024 10:41 AM [facility] Leukocyte, Urine Negative Negative 11/07/2024 10:41 AM EST [facility] Urine URINE SPECIMEN / Unknown Collection / Unknown 11/07/2024 10:30 AM EST 11/07/2024 10:40 AM EST Haroon Mtz DO URINE ORDERABLES Final Res ult Performing Organization Address City/[facility]/ZIP Co de Phone Number [facility] [address] [place] [address], * Culture, Aerobic, Urine (11/07/2024 10:30 AM EST) Culture Mixed bacterial miguel (>=3 colony types), consistent with skin and/or genital contamination. SHALINI 11/08/2024 8:10 PM EST [facility] Urine URINE SPECIMEN / Unknown Collection / Unknown 11/07/2024 10:30 AM EST 11/07/2024 10:41 AM EST Haroon Mtz DO MICROBIOLOGY - GENERAL ORD ERABLES Final Result Performing Organization Address City/[facility]/ZIP Co de Phone Number [facility] [address] [place] [address], from Last 3 Months Insurance [facility] Care Teams Paring Machine Operator Relationship Specialty Start Date End Date Eliu Fong MD PCP - Insurance Assigned PCP 11/18/23 Marielle Armas MD PCP - General Internal Medicine 11/07/24 James Sumner MD [address] [place] [address] Neurology 05/28/19 Eliu Fong MD [address] [place] [address] Family Practice 08/23/17 Brittny Boyd, GASTROENTEROLOGY TEACHER [address] [place] [address] [address] [place] [address] Nurse Practitioner 02/16/24
--- OUTSIDE RECORDS SUMMARY | 2024-11-25 12:42 | XMS_ITS | Patient Health Record ---
[facility] Address [address] [place] [address] Care Team Providers Care Candy Maker Helper Name Role Phone Marielle Goldsmith Primary Care Provider Brandon Nunez Unavailable [phone] Allergies Allergen (clinical drug ingredient) Drug/Non Drug Allergy documented on EMR Reaction Allergy Type Onset Date Status sulfamethoxazole / trimethoprim Bactrim Unknown Drug Allergy Active Reason For Referral No Information Medications Medication SIG (Take, Route, Fr equency, Duration) Notes Start Date End Date Status Cephalexin 500 MG 1 capsule Orally aj ry 12 hrs for 10 days Active Social History Tobacco Use: Social History Observation Description Date Details (start date - stop date) Former Smoker NA - NA Tobacco Use/Smoking Question Answer Notes Are you a: former smoker Alcohol Screen Question Answer Notes Did you have a drink containing alcohol in the p ast year? No Points 0 Interpretation Negative Tobacco use other than smoking: Question Answer Notes Are you an other tobacco user? No Plan Of Treatment Pending Test Test Name Order Date 35473 I&D ABSCESS- SIMPLE,SINGLE 023 Insurance Providers Payer Name Payer Address Payer Phone Subscriber Number Group Number Insured Name Patient Relationship to Insured Coverage Start Date Coverage End Date [facility] [address] [place] [address] [id number] Eileen Cadena Self - patient is the insured
--- OUTSIDE RECORDS SUMMARY | 2024-11-25 12:42 | XMS_ITS | Encounter Summary ---
Author Organization [facility] Address [address] [place] [address] Care Team Providers Care Remelt Pan Tank Operator Name Role Phone Eliu Fong MD Unavailable James Sumner MD Unavailable + Eliu Fong MD Unavailable Brittny Boyd NP Unavailable [phone] Marielle Armas MD Primary Care Provider Unava ilable Encounter Details Date Type Department Care Team (Late st Contact Info) Description 11/07/2024 10:16 AM EST - 11/07/2024 11:01 AM EST Hospital Encounter [facility] [address] [place] [address] Haroon Mtz, DO [address] [facility] [address] [place] [address] Dysuria (Primary Dx) Discharge Disposition: Home or Self Care Social [...] Sign Reading Time Taken Comments Blood Pressure 101/75 11/07/2024 10:18 AM EST Pulse 114 11/07/2024 10:18 AM EST Temperature 36.2 ??C (97.2 ??F) 11/07/2024 10:[address] Respiratory Rate 16 11/07/2024 10:18 AM EST Oxygen Saturation 99% 11/07/2024 10:18 AM EST Inhaled Oxygen Concentration - - Weight - - Height - - Body Mass Index - - documented in this encounter Functional Status * Are you deaf or do you have serious difficulty hearing? Answer Date of Assessment Author No 11/07/2024 10:14 AM EST Karolina Staley * Are you blind or do you have serious difficulty seeing, even when wearing glasses? Answer Date of Assessment Author No 11/07/2024 10:14 AM EST Eusebia Staleya * Do you have serious difficulty walking or climbing stairs? Answer Date of Assessment Author No 11/07/2024 10:14 AM EST Eusebia Staleya * Do you have difficulty dressing or bathing? Answer Date of Assessment Author No 11/07/2024 10:14 AM EST Eusebia Staleya * Because of a physical, mental, or emotional condition, do you have difficulty doing errands alone such as visiting the doctor? Answer Date of Assessment Author No 11/07/2024 10:14 AM EST Karolina Staley documented as of this encounter Mental Status * Because of a physical, mental, or emotional condition, do you have serious difficulty concentrating, remembering, or making decisions? Answer Entry Date Author No 11/07/2024 10:14 AM Karolina Cueto documented in this encounter Discharge Instructions * Discharge Instructions* Haroon Mtz DO - 11/07/2024 10:53 AM EST Your urinalysis did not show evidence of infection, given your symptoms are consistent with known interstitial cystitis I recommend monitoring for any worsening symptoms and returning to the ER or urgent care if they develop, as well as fever, chills, nausea, vomiting, or other worrisome symptoms. In the meantime follow-up with your primary care doctor or urologist next week if your symptoms do not improve. documented in this encounter Medications at Time [...] MOUTH EVERY DAY 30 capsule 0 09/13/2020 SUMAtriptan (IMITREX) 25 MG tablet tablet(s) oral 11/18/2023 vilazodone (VIIBRYD) 10 mg Tab tablet tablet(s) oral 11/18/2023 documented as of this encounter ED Notes * Jose Cedeño RN - 11/07/2024 10:21 AM EST Finished cipro about 10 days ago, but still has burning during urination as well as frequency. Denies fever. Occasional chills. * Haroon Mtz DO - 11/07/2024 10:09 AM EST [facility] Provider Note 11/07/2024 HISTORY OF PRESENT ILLNESS 44-year-old female with a history of interstitial cystitis presents for evaluation of dysuria and frequency. She states that she has had symptoms for couple of weeks, took cipro for 10 days and has not had resolution of the dysuria or frequency. No abdominal pain, nor does she have symptoms of systemic illness. She states that she cannot discern between a UTI and IC symptoms, and typically a normal UA is how she can tell. PHYSICAL EXAM ED Triage Vitals [11/07/24 1018] BP Heart Rate Resp Temp SpO2 101/75 (!) 114 16 97.2 ??F (36.2 ??C) 99 % Physical Exam Constitutional: General: She is not in acute distress. Appearance: Normal appearance. She is not ill-appearing. HENT: Head: Normocephalic and atraumatic. Nose: No rhinorrhea. Eyes: Extraocular Movements: Extraocular movements intact. Cardiovascular: Rate and Rhythm: Normal rate and regular rhythm. Pulmonary: Effort: Pulmonary effort is normal. No respiratory distress. Abdominal: General: There is no distension. Skin: General: Skin is warm and dry. Capillary Refill: Capillary refill takes less than 2 seconds. Neurological: General: No focal deficit present. Mental Status: She is alert. Mental status is at baseline. Psychiatric: Mood and Affect: Mood normal. Behavior: Behavior normal. MEDICAL DECISION MAKING & ED COURSE Labs URINE DIPSTICK ONLY - Abnormal Result Value Ref Range Color, Urine Yellow Yellow Clarity, Urine Cloudy (*) Clear Glucose, Urine Negative Negative Bilirubin, Urine Small (*) Negative Ketone, Urine Negative Negative Specific [place], Urine 1.015 1.000 - 1.030 Blood, Urine Negative Negative pH, Urine 7.5 5.0 - 9.0 Protein, Urine 30 mg/dL (*) Negative Urobilinogen, Urine 0.2 mg/dL 0.2 mg/dL, 1.0 mg/dL Nitrite, Urine Negative Negative Leukocyte, Urine Negative Negative CULTURE, AEROBIC, URINE History of IC, symptoms indistinguishable from UTI. UA shows proteinuria but no leukocytes or otherevidence of infection. Culture will be sent, she is comfortable with plan to defer antibiotics unless there is a positive culture, will follow up with Urology for IC. MDM: Review of non-ED Records Reviewed: Care Everywhere Diagnostic Tests Considered but not performed: CT Abd/Pelvis Prescription Medication Considered but not prescribed: Antibiotics IND INT: UA. Emergency Department Course: There was no critical care performed during this visit. Clinical Impression Dysuria (Primary) Haroon Mtz DO 11/07/24 1106 documented in this encounter Plan of Treatment Upcoming Encounters Date Type Department Care Team (Late st Contact Info) Description 12/01/2024 9:00 AM EDT Office Visit [facility] [address] [facility] 1st Floor [address] [place] [address] Jessica Quispe MD [address] [facility] 1st Floor [address] [place] [address] In Person with Physician documented as of this encounter Procedures Procedure Name Priority Date/Time Associated Diagnosis Comments URINE DIPSTICK ONLY Routine 11/07/2024 1 0:30 AM EST CULTURE, AEROBIC, URINE Routine 11/07/2024 10:30 AM EST documented in this encounter Results * Culture, Aerobic, Urine (11/07/2024 10:30 AM EST) Culture Mixed bacterial miguel (>=3 colony types), consistent with skin and/or genital contamination. SHALINI 11/08/2024 8:10 PM EST [facility] Urine URINE SPECIMEN / Unknown Collection / Unknown 11/07/2024 10:30 AM EST 11/07/2024 10:41 AM EST us Haroon Mtz DO MICROBIOLOGY - GENERAL ORD ERABLES Final Result [facility] [address] [place] [address], * (ABNORMAL) Urine Dipstick with Reflex Culture (11/07/2024 10:30 AM EST) Color, Urine Yellow Yellow 11/07/2024 10:41 AM EST [facility] Clarity, Urine Cloudy(A) Clear 11/07/2024 10:41 AM EST [facility] Glucose, Urine Negative Negative 11/07/2024 10:41 AM [facility] Bilirubin, Urine Small(A) Negative 11/07/2024 10:41 AM [facility] Ketone, Urine Negative Negative 11/07/2024 10:41 AM [facility] Specific [place], Urine 1.015 1.000 - 1.030 11/07/2024 10:41 AM EST [facility] Blood, Urine Negative Negative 11/07/2024 10:41 AM [facility] pH, Urine 7.5 5.0 - 9.0 11/07/2024 10:41 AM [facility] Protein, Urine 30 mg/dL(A) Negative 11/07/2024 10:41 AM [facility] Urobilinogen, Urine 0.2 mg/dL 0.2 mg/dL, 1.0 mg/dL 11/07/2024 10:41 AM [facility] Nitrite, Urine Negative Negative 11/07/2024 10:41 AM [facility] Leukocyte, Urine Negative Negative 11/07/2024 10:41 AM [facility] Urine URINE SPECIMEN / Unknown Collection / Unknown 11/07/2024 10:30 AM EST 11/07/2024 10:40 AM EST us Haroon Mtz DO URINE ORDERABLES Final Res ult Performing Organization Address City/State/[facility] Co de Phone Number [facility] [address] [place] [address], documented in this encounter Visit Diagnoses Diagnosis Dysuria- Primary Interstitial cystitis- Primary Chronic interstitial cystitis documented in this encounter Care Teams Remelt Pan Tank Operator Relationship Specialty Start Date End Date Eliu Fong MD PCP - Insurance Assigned PCP 11/18/23 Marielle Armas MD PCP - General Internal Medicine 11/07/24 James Sumner MD [address] [place] [address] Neurology 05/28/19 Eliu Fong MD [address] [place] [address] Family Practice 08/23/17 Brittny Boyd NP [address] [place] [phone] Nurse Practitioner 02/16/24 documented as of this encounter
--- OUTSIDE RECORDS SUMMARY | 2024-11-25 12:42 | XMS_ITS | Clinical Summary ---
Author Organization [employer] Address [address] [place] [address] Care Team Providers Care Hide Curer Name Role Phone No, Pcp PLUMBER PIPE FITTING Primary Care Provider Unavailabl e Allergies Active Allergy Reactions Criticality Noted Date Comments Penicillins Other (See Comments) 04/24/2016 Patient was told to stay away from it, her dad has the allergy and his throat closed. Medications sertraline (ZOLOFT) 100 MG tablet TAKE 2 TABLETS BY MOUTH 1 TIME A DAY 1 03/31/2016 Active lamoTRIgine (LaMICtal) 100 MG tablet take 1 tablet by mouth once daily 0 03/17/2016 Active buPROPion (WELLBUTRIN) 75 MG tablet TAKE 1 TABLET BY MOUTH IN THE MORNING 0 03/31/2016 Active Social History Tobacco Use Types Packs/Day Years Used Date Smoking Tobacco: Never Comments No Sex and Gender Information Value Date Recorded Sex Assigned at Not on file Legal Sex Female 4:16 AM EDT Gender Identity Not on file Sexual Orientation Not on file Last Filed Vital Signs Vital Sign Reading Time Taken Comments Blood Pressure 110/78 04/24/2016 10:48 AM EDT Pulse 77 04/24/2016 10:48 AM EDT Temperature 36.8 ??C (98.3 ??F) 04/24/2016 10:48 AM E DT Respiratory Rate 14 04/24/2016 10:48 AM EDT Oxygen Saturation 96% 04/24/2016 10:48 AM EDT Inhaled Oxygen Concentration - - Weight 56.7 kg (125 lb) 04/24/2016 10:48 AM EDT Height 154.9 cm (5' 1 ) 04/24/2016 10:48 AM EDT Body Mass Index 23.62 04/24/2016 10:48 AM EDT Plan of Treatment Health Maintenance Due Date Last Done Comments Depression: Screening Annual ly using PHQ-2/9 in Adults 18 yrs or above (or HM Modifier)([facility]) 2000 Hepatitis C Virus Infection in Adolescents and Adults: Screening (or Modifier) ([facility]) 2000 SDGA Screening Reminder: Arielle luke for all adults ([facility]) 2000 Tobacco Smoking Cessation: i n Adults excluding Women: Behavioral and Pharmacotherapy Interventions ([facility]) 2000 DTaP/Tdap/Td Vaccines ([facility]) (1 - Tdap) 2001 Lipid Screening: Once for Wo men aged 20 to 45 yrs ([facility]) 2002 Cervical Cancer Screenin 1-65 yrs of age (or Modifier) 2003 Cervical Cancer Screening: P ap every 3 yrs pts age 21-65 2003 Cervical Cancer: Pap Screeni ng with Modifier timing ([facility]) 2003 Cervical Cancer: hrHPV alone or with cotesting Pap for Pts 30-65yrs screening every 5yrs ([facility]) 2003 Flu Vaccination: Yearly for ages 18mos through 64 years (or Modifier)([facility]) 04/17/2024 COVID-19 Vaccine Screening: Initial Series and Booster Status ([facility]) (2023- season) 2024 Zoster/Shingles Vaccine Seri es Screening: Adults aged 18+ yrs (or HM Modifiers)([facility]) (1 of 2) 2032 Pneumococcal Vaccination Scr eening: Pts 0-19 & 19-64 yrs of age ([facility]) Aged Out No longer eligible based on patient's age to complete this topic [employer] Not on file [place] [address] [place] [address] Care Teams Hide Curer Relationship Specialty Start Date End Date No, Pcp, PLUMBER PIPE FITTING N/A Do not use PCP - General 04/24/16
== END 2024-11-25 11:20 | disposition home or self-care (01) ==
LOC: HO.HSMS 10:35
PROVIDERS: PCP Student in an Organized Health Care Education/Training Program; Visit Provider Psychiatry & Neurology Neurology
DX: G43.719 Chronic migraine without aura, intractable, without status migrainosus (principal)
CPT/HCPCS: 64615

== ENCOUNTER → 2024-11-25 10:34 | Outpatient (BNVA) | payer BC, SELFPAY | PROVIDERS: PCP Student in an Organized Health Care Education/Training Program; Visit Provider Psychiatry & Neurology Neurology | DX: G43.719 Chronic migraine without aura, intractable, without status migrainosus (principal); F45.8 Other somatoform disorders | CPT/HCPCS: 64615; 99211; J0585 ==